=== PATIENT | female | born 1965 | race African-American/Black ===

== ENCOUNTER 2019-01-12 09:25 | Emergency (ER) | payer MEDICAID, BC ==
[2019-01-12] MEDS: IBUPROFEN 800 MG TAB PO (10:26)
== END 2019-01-12 12:02 | disposition home or self-care (01) ==
LOC: FTE 09:25
DX: M17.12 Unilateral primary osteoarthritis, left knee (principal); I10 Essential (primary) hypertension
CPT/HCPCS: 29505; 73564; 73590; 93971; 99284-25